=== PATIENT | female | born 1990 | race African-American/Black ===

== ENCOUNTER 2024-08-30 13:57 | Outpatient (CLI) | payer BC, SELFPAY ==
--- NOTE | ~2024-08-30 | US_ITS ---
Pelvic ultrasound. Clinical History: Abnormal uterine bleeding Technique: Realtime transabdominal and transvaginal scanning of the pelvis was performed. Color flow Doppler and Doppler spectral analysis were performed. Findings: The uterus is anteverted. The endometrial stripe has a thickness of approximately 8 mm. No focal mass is identified. The right ovary measures 5.3 x 4.8 x 6.0 cm. Right ovarian cyst measures 4.4 x 4.1 x 4.0 cm, with low -level internal echoes, most compatible with hemorrhagic cyst. The left ovary measures 3.1 x 2.4 x 3.0 cm. No significant left ovarian or adnexal mass is seen. Vascular flow present in the ovaries on Doppler spectral analysis. There is no evidence of free fluid in the cul de sac. Impression: 4.4 cm right ovarian cyst, likely hemorrhagic cyst. Reviewed, dictated and finalized at [facility]. Impression: 4.4 cm right ovarian cyst, likely hemorrhagic cyst.
== END 2024-08-30 13:58 | disposition home or self-care (01) ==
LOC: MICIMG 13:59
PROVIDERS: PCP Student in an Organized Health Care Education/Training Program; Visit Provider Student in an Organized Health Care Education/Training Program
DX: N83.201 Unspecified ovarian cyst, right side (principal); N93.9 Abnormal uterine and vaginal bleeding, unspecified; D25.9 Leiomyoma of uterus, unspecified
CPT/HCPCS: 76830; 76856

== ENCOUNTER 2025-05-02 07:57 | Outpatient (CLI) | payer BC, SELFPAY ==
--- OUTSIDE RECORDS SUMMARY | 2025-05-02 08:07 | XMS_ITS | Encounter Summary ---
Author Organization [facility] Address [address] [place] [address] Care Team Providers Care Health Coach Name Role Phone Sulema Lincoln APRN-FRANCHISE SALES MANAGER Unavailable [phone] Earnest Terrell MD Unavailable [phone] Rocio Colin APRN-FRANCHISE SALES MANAGER Primary Care Provider Reason for Visit * Reason Comments Refill Request Encounter Details Date Type Department Care Team (Late st Contact Info) Description 01/20/2024 Refill [facility] - Family Medicine [address] [place] [phone] Jennifer Gleason APRN-CNP RETIRED Refill Request Social History Tobacco Use Types Packs/Day Years Used Date Smoking Tobacco: Never Smokeless Tobacco: Never Alcohol Use Standard Drinks/Week Comments Not Currently 0 (1 standard drink = 0.6 oz pur e alcohol) occ AUDIT-C Answer Date Recorded Q1: How often do you have a drink containing alcohol? Never 11/17/2023 Q2: How many drinks containi ng alcohol do you have on a typical day when you are drinking? Patient does not drink Q3: How often do you have si x or more drinks on one occasion? Never 11/17/2023 PHQ-2 Answer Date Recorded Patient Health Questionnaire-2 Score 0 08/12/2023 Comments No Sex and Gender Information Value Date Recorded Sex Assigned at Not on file Legal Sex Female 6:24 PM CASTING INSPECTOR Gender Identity Not on file Sexual Orientation Not on file documented as of this encounter Functional Status * Is person deaf or have serious hearing difficulty? Answer Date of Assessment Author No 11/17/2023 9:52 AM Kelly Valadez RN * Is person blind or have serious difficulty seeing? Answer Date of Assessment Author No 11/17/2023 9:52 AM Kelly Valadez RN * Does person have serious difficulty walking/climbing stairs? Answer Date of Assessment Author No 11/17/2023 9:52 AM Kelly Valadez RN * Does person have difficulty dressing/bathing? Answer Date of Assessment Author No 11/17/2023 9:52 AM Kelly Valadez RN * Does person have difficulty doing errands alone? Answer Date of Assessment Author No 11/17/2023 9:52 AM Kelly Valadez RN documented as of this encounter Mental Status * Does person have difficulty concentrating/remembering/making decisions? Answer Entry Date Author No 11/17/2023 9:52 AM Kelly Valadez RN documented in this encounter Plan of Treatment Not on file documented as of this encounter Visit Diagnoses Not on filedocumented in this encounter Additional Health Concerns Infection Onset Date Last Indicated Resolved Time COVID-19 Under Investigation 07/21/2024 07/21/2024 07/22/2024 5:22 PM CASTING INSPECTOR Influenza A or B 07/21/2024 07/21/2024 07/28/2024 4:33 AM CASTING INSPECTOR documented as of this encounter Care Teams Health Coach Relationship Specialty Start Date End Date Rocio Colin APRN-CNP [address] [place] [phone] PCP - General Nurse Practitioner 05/06/21 Sulema Lincoln APRN-CNP Nurse Practitioner 07/30/20 Earnest Terrell MD [facility] [place] [phone] (Work) Rheumatology 05/05/21 documented as of this encounter
--- OUTSIDE RECORDS SUMMARY | 2025-05-02 08:07 | XMS_ITS | Encounter Summary ---
Author Organization [facility] Address [address] [place] [address] Care Team Providers Care Migratory Farm Hand Name Role Phone Sulema Lincoln APRN-OCCUPATIONAL THERAPY TEACHER Unavailable Earnest Terrell MD Unavailable [phone] Rocio Colin APRN-OCCUPATIONAL THERAPY TEACHER Primary Care Provider Encounter Details Date Type Department Care Team (Late st Contact Info) Description 04/12/2025 Results Follow-Up [facility] - Family Medicine [address] [place] [phone] Rocio Colin APRN-CNP [address] [place] [phone] Social History Tobacco Use Types Packs/Day Years [...] Date Recorded Patient Health Questionnaire-2 Score 0 02/07/2025 Comments No Sex and Gender Information Value Date Recorded Sex Assigned at Not on file Legal Sex Female 6:24 PM RADIO SPORTSCASTER Gender Identity Not on file Sexual Orientation [...] Diagnoses Not on filedocumented in this encounter Care Teams Migratory Farm Hand Relationship Specialty Start Date End Date Rocio Colin APRN-VICKY [address] [place] [phone] PCP - General Nurse Practitioner 05/06/21 Sulema Lincoln APRN-OCCUPATIONAL THERAPY TEACHER Nurse Practitioner 07/30/20 Earnest Terrell MD [address] [place] [phone] (Work) Rheumatology 05/05/21 documented as of this encounter
--- OUTSIDE RECORDS SUMMARY | 2025-05-02 08:07 | XMS_ITS | Clinical Summary ---
Author Organization [facility] Address [address] [place] [address] Phone Care Team Providers Care Manager Target Name Role Phone Sydnie Munoz Primary Care Provider [phone] Rudy Day MD Unavailable [phone] Allergies No known active allergies Medications omeprazole (PriLOSEC) 20 MG CAPSULE DELAYED RELEASE Take 1 Capsule by mouth. 02/18/2016 Active Cholecalciferol (VITAMIN D-3 PO) Take by mouth. Active Menaquinone-7 (VITAMIN K2 PO) Take by mouth. Active LOSARTAN POTASSIUM PO Take by mouth. Active Etonogestrel-Et hinyl Estradiol (NUVARING VA) by Vaginal route. Active Active Problems Problem Noted Date Diagnosed Date Iron deficiency anemia due to chronic blood loss 05/15/2019 Menorrhagia with regular cycle 05/15/2019 Family History Medical History Relation Name Comments Hypertension Father Kidney Disease Father Heart Attack Mother Hypertension Mother Thyroid Disease Mother Lupus Sister Rheumatoid Arthritis Sister Relation Name Status Comments Father Alive Mother Alive Sister Alive Social History Tobacco Use Types Packs/Day Years Used Date Smoking Tobacco: Never Passive Smoke Exposure: Never Smokeless Tobacco: Never Alcohol Use Standard Drinks/Week Comments Never 0 (1 standard drink = 0.6 oz pur e alcohol) AUDIT-C Answer Date Recorded Frequency of Alcohol Consumption Never 05/15/2019 Average Number of Drinks Not on file 019 Frequency of Binge Drinking Not on file 04/30 PHQ-2 Answer Date Recorded PHQ-2 Score 0 05/15/2019 Comments Unknown Sex and Gender Information Value Date Recorded Sex Assigned at Not on file Legal Sex Female 11:07 AM ABSTRACT CHECKER Gender Identity Not on file Sexual Orientation Not on file Last Filed Vital Signs Vital Sign Reading Time Taken Comments Blood Pressure 144/86 12/09/2023 3:20 PM CDT Pulse 81 12/09/2023 3:20 PM CDT Temperature 36.6 C (97.8 F) 12/09/2023 3:20 PM CDT Respiratory Rate - - Oxygen Saturation 98% 12/09/2023 3:20 PM CDT Inhaled Oxygen Concentration - - Weight 137 kg (302 lb) 12/09/2023 3:20 PM CDT Height 167.6 cm (5' 6) 12/09/2023 3:20 PM CDT Body Mass Index 48.74 12/09/2023 3:20 PM CDT Plan of Treatment Upcoming Encounters Date Type Department Care Team (Late st Contact Info) Description 05/14/2025 2:00 PM ABSTRACT CHECKER Office Visit [facility] [address], [address] [phone] Rudy Day MD [address] [phone] Health Maintenance Due Date Last Done Comments Varicella Immunization (1 of 2 - 13+ 2-dose series) 10/08/2004 Pap Smear 10/08/2012 Cervical Cancer Screening (CCS) 10/08/2021 HPV/Cotest 10/08/2021 Influenza Immunization (#1) 2025 SARS-COV-2 Immunization ( season) 2025 03/08/2021, 02/15/2021, 02/01/2021 Respiratory Syncytial Virus (RSV) Immunization (Adult) (1 - 1-dose 75+ series) 10/08/2066 Hepatitis B Immunization Completed 002, 03/18/2001, 02/15/2001 DTaP/Tdap/Td Immunization Discontinued 2005, 01/20/1996, 03/19/1993, Additional history exists TdaP Immunization Completed 11/24/2005 Human Papillomavirus (HPV) Immunization Completed 05/01/2009, 01/09/2009, 10/24/2008 Hepatitis C Virus (HCV) Screening Completed 08/12/2022 Meningococcal Immunization (ACWY) Aged Out No longer eligible based on patient's age to complete this topic Pneumococcal Immunization Combined Aged Out No longer eligible based on patient's age to complete this topic Rotavirus Immunization Aged Out No lo nger eligible based on patient's age to complete this topic Insurance [facility] Care Teams Manager Target Relationship Specialty Start Date End Date Sydnie Munoz PA [facility] [place] [phone] PCP - General Physician Drying Frame Operator 04/21/19 Rudy Day MD [facility] [place] [phone] Consulting Physician Oncology 04/21/19
--- OUTSIDE RECORDS SUMMARY | 2025-05-02 08:07 | XMS_ITS | Clinical Summary ---
Author Organization [facility] Address [address] [place] [address] Care Team Providers Care Nanny Babysitter Name Role Phone Sulema Lincoln APRN-LICENSED SOCIAL WORKER Unavailable [phone] Earnest Terrell MD Unavailable [phone] Rocio Colin APRN-LICENSED SOCIAL WORKER Primary Care Provider Source Comments [facility],non-owned Affiliates and Associated Physician Practices is amultiple site organization consisting of ambulatory clinics and hospital sitesin [place], [place], [place] and [place]. This disclosure is being madepursuant to the Care Everywhere program and may not contain all information available regarding this patient. Last updated 18.[facility] Allergies No known active allergies Medications * Be aware that medications may not be up to date on this document. Alwaysverify current medications with the patient. multivitamin daily tabletIndication s:do not restart until drapery rod assembler visit Take 1 (one) tablet by mouth daily with food Reasons: do not restart until drapery rod assembler visit 1 Active Blood Pressure KIT Use 1 kit 2 times daily 1 kit 1 Active Iron-Vitamin C 65-125 MG TABS Take 1 Dose by mouth 2 times daily Active EluRyng 0.12-0.015 MG/24HR vaginal ring Insert 1 (one) device into the vagina every 30 days Remove ring after 3 weeks, followed by 1 week-rest, then insert new ring 1 device 12 3 Active Additional Information Patient not taking.Reported on 07/21/2024 triamterene-hydr oCHLOROthiazide (Dyazide) 37.5-25 MG capsule Take 1 (one) capsule by mouth once daily 30 capsule 4 Active Additional Information Patient not taking.Reported on 12/01/2023 omeprazole (PriLOSEC) 40 MG capsule Take 1 (one) capsule by mouth once daily as needed for Heartburn 30 capsule 2 4 Active vitamin D, ergocalciferol, (Drisdol) 1.25 MG (72097 UT) capsuleIndicatio ns:Vitamin D Deficiency Take 1 (one) capsule by mouth every 7 days Reasons: Vitamin D Deficiency 4 capsule 3 4 Active metFORMIN ER 24hr (Glucophage XR) 500 MG tablet Take 2 (two) tablets by mouth once daily 30 tablet 4 Active Additional Information Patient not taking.Reported on 02/11/2024 losartan (Cozaar) 50 MG tablet Take 1 (one) tablet by mouth once daily 4 Active cephalexin (Keflex) 500 MG capsuleIndicatio ns:Abscess of right groin Take 1 (one) capsule by mouth 3 times daily 30 capsule 4 Active Additional Information Patient not taking.Reported on 07/21/2024 methylPREDNISolo ne (Medrol Dosepak) 4 MG tabletIndication s:Acute midline low back pain without sciatica Take 1 (one) tablet by mouth as directed 21 tablet 4 Active Additional Information Patient not taking.Reported on 07/21/2024 cyclobenzaprine (Flexeril) 10 MG tabletIndication s:Acute midline low back pain without sciatica Take 1 (one) tablet by mouth at bedtime 30 tablet 4 Active Additional Information Patient not taking.Reported on 07/21/2024 docusate sodium (Colace) 100 MG capsuleIndicatio ns:Generalized abdominal pain,Constipatio n, unspecified constipation type Take 1 (one) capsule by mouth once daily as needed for Constipation 30 capsule 3 4 Active azithromycin (Zithromax) 250 MG tabletIndication s:Pharyngitis 500 mg PO on the first day; then, 250 mg PO daily for 4 days Reasons: Throat Infection 6 tablet 5 Active amoxicillin (Amoxil) 500 MG capsule Take 1 (one) capsule by mouth 3 times daily 30 capsule 5 Active chlorhexidine (Peridex) 0.12 % solution Swish and spit 15 mL 2 times daily 1893 mL 5 Active Active Problems Problem Noted Date Diagnosed Date Yeast infection 05/21/2022 Oral lesion 08/21/2021 Benign essential hypertension 08/21/2021 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 05/14/2021 Poor iron absorption 05/14/2021 Morbid obesity 11/04/2020 Diverticulitis of colon 04/15/2020 Acne vulgaris 06/08/2019 Family history of diabetes mellitus 06/08/2019 Low back pain 06/08/2019 Atypical chest pain 06/08/2019 Mastodynia 06/08/2019 Other malaise and fatigue 06/08/2019 Other specified hypoglycemia 06/08/2019 Reactive lymphadenopathy 06/08/2019 DENISE positive 06/05/2019 Iron deficiency anemia due to chronic blood loss 05/15/2019 Resolved Problems Problem Noted Date Diagnosed Date Resolved Date Dehydration 11/14/2020 11/28/2020 Acute pancreatitis 04/15/2020 Other abnormal glucose 06/08/201911/21 Other abnormal glucose 06/08/201911/21 Scanty or infrequent menstruation 06/08/2019 11/21/2020 Other abnormal glucose 06/05/201911/21 Menorrhagia with regular cycle 05/15/2019 11/21/2020 Preop examination 06/05/2019 Preop examination 11/21/2020 Encounters Date Type Department Care Team Description 04/17/2025 Orders Only [facility] Family Medicine [address] [place] [phone] Rocio Colin REHABILITATION NURSE-VICKY Elevated amylase 04/17/2025 Orders Only [facility] Family [address] [phone] Rocio Colin, REHABILITATION NURSE-VICKY Anemia, unspecified type 04/17/2025 Orders Only [facility] Family Medicine [address] [place] [phone] Cristi, Rocio E, REHABILITATION NURSE-LICENSED SOCIAL WORKER Elevated amylase 04/12/2025 Orders Only [address] [phone] Cristi, Rocio E, REHABILITATION NURSE-LICENSED SOCIAL WORKER Anemia, unspecified type ; Fatigue, unspecified type; Iron deficiency 04/12/2025 Results Follow-Up [address] [phone] Heather Coline Cindy, REHABILITATION NURSE-LICENSED SOCIAL WORKER 04/10/2025 11:01 AM SKIP PIT WORKER - 04/10/2025 11:59 PM SKIP PIT WORKER Hospital Encounter [address] [phone] Cristi Rocio E, REHABILITATION NURSE-LICENSED SOCIAL WORKER Discharge Disposition: Home or Self Care 04/10/2025 Travel 04/09/2025 1:15 PM SKIP PIT WORKER Video Visit [address] [phone] Cristi Rocio E, REHABILITATION NURSE-LICENSED SOCIAL WORKER Fatigue, unspecified type ; Abdominal pain, unspecified abdominal location; Morbid obesity (HCC) 02/07/2025 4:45 PM CDT Video Visit [address] [phone] Rip Colincie E, REHABILITATION NURSE-LICENSED SOCIAL WORKER Pain, dental from Last 3 Months Immunizations Immunization Administration Dates Next Due Peela primary monoval ent 12+ yr 0.3mL Purple cap 03/08/2021,02/01/2021 DTP 01/20/1996, 3,04/18/1992,1991,1991 HEP B VACCINE, PED/ADOL 08/12/2001,03/18/2001, HIB VACCINE 03/19/1993, 2,02/14/1992,1991 Human Papilloma Virus Juan Alberto valent Vaccine 05/01/2009,01/09/2009,10/24/2008 MMR 01/20/1996,03/19/1993 POLIO OPV 01/20/1996, 3,02/14/1992,1991 Rho D Immune Globulin 06/13/2017 TDAP, HISTORIC VACCINE 11/24/2005 Family History Medical History Relation Name Comments Hypertension Father Hypertension Mother H/O Thyroid Disease Mother Cancer - Other Paternal Grandfather Diabetes - Type 2 Paternal Grandmother Lupus Sister Relation Name Status Comments Father Alive Maternal Grandfather Maternal Grandmother Alive Mother Alive Paternal Grandfather Paternal Grandmother Sister Alive Social History Tobacco Use Types Packs/Day Years Used Date Smoking Tobacco: Never Smokeless Tobacco: Never Tobacco Cessation:Counseling Given: Not Answered Alcohol Use Standard Drinks/Week Comments Not Currently [...] on file Legal Sex Female 6:24 PM SKIP PIT WORKER Gender Identity Not on file Sexual Orientation Not on file Last Filed Vital Signs Vital Sign Reading Time Taken Comments Blood Pressure 120/80 02/11/2024 2:48 PM CDT Pulse 105 07/21/2024 5:23 PM SKIP PIT WORKER Temperature 38.1 C (100.5 F) 07/21/2024 5:23 PM SKIP PIT WORKER Respiratory Rate 20 12/01/2023 2:00 PM CDT Oxygen Saturation 99% 07/21/2024 5:23 PM SKIP PIT WORKER Inhaled Oxygen Concentration 21% 11/04/2020 8 :20 PM CDT Weight 141.5 kg (312 lb) 07/21/2024 5:23 PM SKIP PIT WORKER Height 158.8 cm (5' 2.5) 02/11/2024 2:48 PM CDT Body Mass Index 56.16 02/11/2024 2:48 PM CDT Plan of Treatment Health Maintenance Due Date Last Done Comments DTAP/TDAP/TD VACCINES (7 - Td or Tdap) 11/25/2015 11/24/2005, 01/20/1996, 03/19/1993, Additional history exists COVID-19 VACCINE ( season) 2025 03/08/2021, 02/01/2021 INFLUENZA VACCINE (#1) 2025 PAP with HPV 07/01/2026 07/01/2021 ZOSTER VACCINE (1 of 2) 10/08/2041 HIB VACCINE Completed 03/19/1993, 03/31, 02/14/1992, Additional history exists HEPATITIS B VACCINE Completed 08/12/2001, 03/18/2001, 02/15/2001 HPV VACCINE Completed 05/01/2009, 12/29, 10/24/2008 HEPATITIS C SCREENING Completed 08/12/2022, HIV SCREENING Completed 08/12/2022, 01/15/2021 DEPRESSION SCREENING Completed 07/21/2024, 07/22/2023, 06/18/2022, Additional history exists MENINGOCOCCAL (Group B) VACCINE SHARED DECISION-MAKING Aged Out No longer eligible based on patient's age to complete this topic MENINGOCOCCAL GROUPS A/C/Y/W VACCINE Aged Out No longer eligible based on patient's age to complete this topic PNEUMOCOCCAL VACCINE Aged Out No long er eligible based on patient's age to complete this topic Medical Devices Implanted Type Area [employer] Worker Device Identifier Shelf Expiration Date Model / Serial / Lot Seal Tisseel Prima 1 Prefil Frz 10ml - [id number] Implanted:Qty: 1 on 11/04/2020 by Ngoc Kaye MD at [facility] N/A: Abdomen [employer] 03/30/2022 [id number] / [id number] / [id number] Procedures Procedure Name Priority Date/Time Associated Diagnosis Comments CBC W AUTO DIFFERENTIAL Routine 04/10/2025 11:02 AM SKIP PIT WORKER Fatigue, unspecified type FERRITIN Routine 04/10/2025 11:02 AM SKIP PIT WORKER Fatigue, unspecified type VITAMIN B12 FOLATE PANEL Routine 04/10/2025 11:02 AM SKIP PIT WORKER Fatigue, unspecified type SOLUBLE TRANSFERRIN RECEPTOR Routine 04/10/2025 11:02 AM SKIP PIT WORKER Fatigue, unspecified type IRON + TRANSFERRIN PANEL Routine 04/10/2025 11:02 AM SKIP PIT WORKER Fatigue, unspecified type COMPREHENSIVE METABOLIC PANEL Routine 04/10/2025 11:02 AM SKIP PIT WORKER Fatigue, unspecified type T4 FREE Routine 04/10/2025 11:02 AM SKIP PIT WORKER Fatigue, unspecified type TSH Routine 04/10/2025 11:02 AM SKIP PIT WORKER Fatigue, unspecified type T3 FREE Routine 04/10/2025 11:02 AM SKIP PIT WORKER Fatigue, unspecified type VITAMIN B1 Routine 04/10/2025 11:02 AM SKIP PIT WORKER Fatigue, unspecified type VITAMIN B6 Routine 04/10/2025 11:02 AM SKIP PIT WORKER Fatigue, unspecified type VITAMIN D 25-HYDROXY Routine 04/10/2025 11:02 AM SKIP PIT WORKER Fatigue, unspecified type INSULIN LEVEL FASTING Routine 04/10/2025 11:02 AM SKIP PIT WORKER Fatigue, unspecified type AMYLASE BLOOD Routine 04/10/2025 11:02 AM SKIP PIT WORKER Abdominal pain, unspecified abdominal location LIPASE BLOOD Routine 04/10/2025 11:02 AM SKIP PIT WORKER Abdominal pain, unspecified abdominal location HEPATITIS C ANTIBODY W RFLX PCR Routine 08/12/2022 9:28 AM CDT STD exposure HIV-1 HIV-2 ANTIBODY + HIV P24 AG PANEL Routine 08/12/2022 9:28 AM CDT STD exposure PAP IG LB+CT+NG+HPV APTIMA RFLX 16,18/45 Routine 07/01/2021 9:00 AM SKIP PIT WORKER Well woman exam with routine gynecological exam Encounter for surveillance of vaginal ring hormonal contraceptive device from Last 3 Months or Most Recently Relevant to Health Maintenance Results * INSULIN LEVEL FASTING (04/10/2025 11:02 AM SKIP PIT WORKER) Insulin Fasting 17 3 - 25 uIU/mL 04/12/2025 9:19 AM [facility] ([facility]) Comment: INTERPRETIVE INFORMATION: Insulin, Fasting This test reacts on a nearly equimolar basis with the analogs insulin aspart, insulin glargine, and insulin lispro. Insulin detemir exhibits approximately 50 percent cross-reactivity. Test reactivity with insulin glulisine is negligible (less than 3 percent). To convert to pmol/L, multiply uIU/mL by 6.0. Performed By: [facility] [address] [place] [address] Theatrical Trouper: Jalen Laws MD, PhD CLIA Number: [id number] Blood BLOOD SPECIMEN / Unknown Venipuncture / Unknown 04/10/2025 11:02 AM SKIP PIT WORKER 04/10/2025 11:02 AM [facility] Rocio Colin REHABILITATION NURSE-LICENSED SOCIAL WORKER LAB - CHEMISTRY ORDERAB LES Final Result [facility] ([facility]) [address] [place] [address] * VITAMIN B1 (04/10/2025 11:02 AM [facility]) Pathologist [facility] Vitamin B1 Whole Blood 72 70 - 180 nmol/L 04/13/2025 1:20 AM [facility] ([facility]) Comment: INTERPRETIVE INFORMATION: Vitamin B1, Whole Blood This assay measures the concentration of thiamine diphosphate (TDP), the primary active form of vitamin B1. Approximately 90 percent of vitamin B1 present in whole blood is TDP. Thiamine and thiamine monophosphate, which comprise the remaining 10 percent, are not measured. This test was developed and its performance characteristics determined by [facility]. It has not been cleared or approved by the [place] Food and Drug Administration. This test was performed in a CLIA certified laboratory and is intended for clinical purposes. Performed By: [facility] [address] [place] [address] Theatrical Trouper: Jalen Laws MD, PhD CLIA Number: [id number] Blood BLOOD SPECIMEN / Unknown Venipuncture / Unknown 04/10/2025 11:02 AM SKIP PIT WORKER 04/10/2025 11:02 AM SKIP PIT WORKER Rocio E Foster REHABILITATION NURSE-LICENSED SOCIAL WORKER LAB - CHEMISTRY ORDERAB LES Final Result Performing Organization Address [facility]/ZIP Co de Phone Number [employer] [facility]) [address] [place] [address] * (ABNORMAL) VITAMIN B6 (04/10/2025 11:02 AM SKIP PIT WORKER) Vitamin B6 8.1(L) 20.0 - 125.0 nmol/L 04/17/2025 1:28 AM SKIP PIT WORKER [employer] ([facility]) Comment: INTERPRETIVE INFORMATION: Vitamin B6 (Pyridoxal 5-Phosphate) Pyridoxal 5'-phosphate measured in a specimen collected following an 8-hour or overnight fast accurately indicates vitamin B6 nutritional status. Non-fasting specimen concentration reflects recent vitamin intake. This test was developed and its performance characteristics determined by [facility] [employer]. It has not been cleared or approved by the [place] Food and Drug Administration. This test was performed in a CLIA certified laboratory and is intended for clinical purposes. Performed By: [facility] [address] [place] [address] Theatrical Trouper: Jalen Laws MD, PhD CLIA Number: [id number] Blood BLOOD SPECIMEN / Unknown Venipuncture / Unknown 04/10/2025 11:02 AM SKIP PIT WORKER 04/10/2025 11:02 AM SKIP PIT WORKER Rociocindy Colin REHABILITATION NURSE-LICENSED SOCIAL WORKER LAB - CHEMISTRY ORDERAB LES Final Result Performing Organization Address [facility] Co de Phone Number [email or web address] [facility]) [address] [place] [address] * T3 FREE (04/10/2025 11:02 AM SKIP PIT WORKER) T3 Free 2.6 2.5 - 4.3 pg/mL 04/12/2025 12:07 PM SKIP PIT WORKER [email or web address] ([facility]) Comment: REFERENCE INTERVAL: Triiodothyronine, Free (Free T3) Access complete set of age- and/or gender-specific reference intervals for this test in the [facility] Laboratory Test Directory ([employer]). Performed By: [email or web address] [address] [place] [address] Theatrical Trouper: Jalen Laws MD, PhD CLIA Number: [id number] Blood BLOOD SPECIMEN / Unknown Venipuncture / Unknown 04/10/2025 11:02 AM SKIP PIT WORKER 04/10/2025 11:02 AM SKIP PIT WORKER Rocio Colin [facility] - CHEMISTRY ORDERAB LES Final Result Performing Organization Address [facility]/ZIP Co de Phone Number [facility] [employer] ([facility]) [address] [place] [id number] * (ABNORMAL) VITAMIN D 25-HYDROXY (PERFORMED IN HOUSE) (04/10/2025 11:02 AM SKIP PIT WORKER) [facility] Vitamin D, 25 Hydroxy 24.9(L) 30 - 80 ng/mL 04/10/2025 1:50 PM SKIP PIT WORKER [facility] Blood BLOOD SPECIMEN / Unknown Venipuncture / Unknown 04/10/2025 11:02 AM SKIP PIT WORKER 04/10/2025 11:02 AM SKIP PIT WORKER Narrative [facility] - 04/10/2025 1:50 PM SKIP PIT WORKER Reference Values: The recommendation for 25-Hydroxy Vitamin D clinical decision points are as follows: Deficient < 20.0 ng/mL Insufficient 20.0-29.9 ng/mL Sufficient 30.0-100.0 ng/mL Potential Toxicity >100 ng/mL Reference: The Endocrine Society Clinical Practice Guidelines. 2011 If the 25-Hydroxy Vitamin D results are inconsistent with clinical evidence, it is recommended that follow-up testing using a method such as LC-MS/MS be performed to confirm the result. Rocio Colin REHABILITATION NURSE-LICENSED SOCIAL WORKER LAB - CHEMISTRY ORDERAB LES Final Result Performing Organization Address City/[facility]/ZIP Co de Phone Number [facility] [address] [place] [address] * (ABNORMAL) SOLUBLE TRANSFERRIN RECEPTOR (04/10/2025 11:02 AM SKIP PIT WORKER) Pathologist [facility] Soluble Transferrin Receptor 3.78(H) 0.90 - 2.01 mg/L 04/12/2025 12:04 AM SKIP PIT WORKER [employer] ([facility]) Comment: INTERPRETIVE INFORMATION: Soluble Transferrin Receptor The Ken Griselda Access sTfR immunoassay is intended as an aid in the diagnosis of iron deficiency anemia, especially in patients with chronic disease. In adult patients with anemia, an sTfR result greater than or equal to 1.55 mg/L is 86 percent sensitive and 49 percent specific for the presence of iron deficiency anemia, alone or in combination with anemia of chronic disease. The sTfR assay is not intended to be used in isolation; results should be interpreted in conjunction with the patient's clinical presentation and other diagnostic tests, such as other indicators of iron status (refer to table below). Tests for Iron Anemia of Combined Iron Changes Def. Chronic Def. and anemia Analyte in: Anemia Disease of Chronic Dz ------- -------- ------ --------- Ferritin Iron Stores Low High Normal or High TIBC Iron Status High Low Normal or High Serum Fe Iron Status Low Low Low sTfR Iron Status High Normal High Performed By: [facility] [employer] [address] [place] [address] Theatrical Trouper: Jalen Laws MD, PhD CLIA Number: [id number] Blood BLOOD SPECIMEN / Unknown Venipuncture / Unknown 04/10/2025 11:02 AM SKIP PIT WORKER 04/10/2025 11:02 AM SKIP PIT WORKER Rocio Colin REHABILITATION NURSE-LICENSED SOCIAL WORKER LAB - CHEMISTRY ORDERAB LES Final Result [email or web address] ([facility]) [address] [place] [address] * (ABNORMAL) CBC WITH DIFFERENTIAL (04/10/2025 11:02 AM SKIP PIT WORKER) [facility] WBC 5.1 4.0 - 10.7 x10E9/L 04/10/2025 12:36 PM SKIP PIT WORKER [facility] RBC Count 3.80(L) 3.90 - 5.20 x10E12/L 04/10/2025 12:36 PM [facility] Hemoglobin 7.6(L) 11.9 - 15.8 g/dL 04/10/2025 12:36 PM [facility] Hematocrit 27.3(L) 34.8 - 46.1 % 04/10/2025 12:36 PM [facility] MCV 71.8(L) 80.0 - 98.0 fL 04/10/2025 12:36 PM [facility] MCH 20.0(L) 26.7 - 33.6 pg 04/10/2025 12:36 PM [facility] MCHC 27.8(L) 31.7 - 36.3 g/dL 04/10/2025 12:36 PM [facility] RDW-CV 17.4(H) 11.3 - 14.8 % 04/10/2025 12:36 PM [facility] Platelet Count 448(H) 150 - 420 x10E9/L 04/10/2025 12:36 PM [facility] MPV 10.8 7.8 - 11.4 fL 04/10/2025 12:36 PM [facility] Neutrophil % 63.2 41.0 - 74.0 % 04/10/2025 12:36 PM [facility] Lymphocyte % 27.2 17.0 - 47.0 % 04/10/2025 12:36 PM [facility] Monocyte % 7.6 3.0 - 11.0 % 04/10/2025 12:36 PM [facility] Eosinophil % 1.6 0.0 - 7.0 % 04/10/2025 12:36 PM [facility] Basophil % 0.2 0.0 - 1.6 % 04/10/2025 12:36 PM [facility] Immature Granulocytes % 0.2 0.0 - 1.0 % 04/10/2025 12:36 PM [facility] Neutrophil Absolute 3.25 1.60 - 7.50 x10E9/L 04/10/2025 12:36 PM [facility] Lymphocyte Absolute 1.40 1.00 - 4.40 x10E9/L 04/10/2025 12:36 PM [facility] Monocyte Absolute 0.39 0.15 - 1.00 x10E9/L 04/10/2025 12:36 PM [facility] Eosinophil Absolute 0.08 0.00 - 0.60 x10E9/L 04/10/2025 12:36 PM [facility] Basophil Absolute 0.01 0.00 - 0.13 x10E9/L 04/10/2025 12:36 PM [facility] Blood BLOOD SPECIMEN / Unknown Venipuncture / Unknown 04/10/2025 11:02 AM SKIP PIT WORKER 04/10/2025 11:02 AM [facility] us Rocio Colin REHABILITATION NURSE-LICENSED SOCIAL WORKER LAB - HEMATOLOGY ORDERA BLES Final Result [facility] [address] * (ABNORMAL) COMPREHENSIVE METABOLIC PANEL (04/10/2025 11:02 AM [facility]) [facility] Glucose 90 70 - 125 mg/dL 04/10/2025 1:16 PM [facility] Sodium 140 136 - 145 mmol/L 04/10/2025 1:16 PM [facility] Potassium 3.8 3.4 - 5.1 mmol/L 04/10/2025 1:16 PM [facility] Chloride 109(H) 98 - 107 mmol/L 04/10/2025 1:16 PM [facility] CO2 25 22 - 29 mmol/L 04/10/2025 1:16 PM [facility] Calcium 8.95 8.4 - 10.2 mg/dL 04/10/2025 1:16 PM [facility] Anion Gap 6 6 - 16 mmol/L 04/10/2025 1:16 PM [facility] BUN 6.2(L) 9.8 - 20.1 mg/dL 04/10/2025 1:16 PM [facility] Creatinine 0.72 0.57 - 1.11 mg/dL 04/10/2025 1:16 PM [facility] Alkaline Phosphatase 77 40 - 150 U/L 04/10/2025 1:16 PM [facility] ALT 7 7 - 30 U/L 04/10/2025 1:16 PM [facility] AST 18 5 - 34 U/L 04/10/2025 1:16 PM [facility] Protein Total 7.2 6.4 - 8.3 gm/dL 04/10/2025 1:16 PM [facility] Albumin 3.5 3.1 - 4.5 gm/dL 04/10/2025 1:16 PM [facility] Globulin Total 3.7 2.6 - 4.0 gm/dL 04/10/2025 1:16 PM [facility] Albumin/Globulin Ratio 0.9 0.9 - 1.6 04/10/2025 1:16 PM [facility] Bilirubin Total 0.3 0.2 - 1.2 mg/dL 04/10/2025 1:16 PM [facility] eGFR >90 >90 mL/min/1.7 3m2 04/10/2025 1:16 PM [facility] Comment:Estimated Glomerular Filtration Rate (eGFR) calculated using the CKD-EPI Creatinine Equation (2020), per the National Kidney Foundation and [place] [employer] recommendations. Blood BLOOD SPECIMEN / Unknown Venipuncture / Unknown 04/10/2025 11:02 AM SKIP PIT WORKER 04/10/2025 11:02 AM SKIP PIT WORKER Rocio E Cristi REHABILITATION NURSE-LICENSED SOCIAL WORKER LAB - CHEMISTRY ORDERAB LES Final Result Performing Organization Address City/[facility] Co de Phone Number [facility] [address] [place] [address] * LIPASE BLOOD (04/10/2025 11:02 AM SKIP PIT WORKER) Pathologist [facility] Lipase 8 8 - 78 U/L 04/10/2025 1:16 PM [facility] Blood BLOOD SPECIMEN / Unknown Venipuncture / Unknown 04/10/2025 11:02 AM SKIP PIT WORKER 04/10/2025 11:02 AM SKIP PIT WORKER Rocio E Cristi REHABILITATION NURSE-LICENSED SOCIAL WORKER LAB - CHEMISTRY ORDERAB LES Final Result Performing Organization Address City/[facility] Co de Phone Number [facility] [address] [place] [address] * VITAMIN B12 FOLATE PANEL (04/10/2025 11:02 AM SKIP PIT WORKER) Vitamin B12 377 213 - 816 pg/mL 04/10/2025 1:23 PM [facility] Folate 9.6 7.0 - 31.4 ng/mL 04/10/2025 1:23 PM SKIP PIT WORKER [facility] Blood BLOOD SPECIMEN / Unknown Venipuncture / Unknown 04/10/2025 11:02 AM SKIP PIT WORKER 04/10/2025 11:02 AM SKIP PIT WORKER us Rocio E Foster REHABILITATION NURSE-LICENSED SOCIAL WORKER LAB - CHEMISTRY ORDERAB LES Final Result Performing Organization Address City/[facility]/ZIP Co de Phone Number [facility] [address] [place] [address] * (ABNORMAL) AMYLASE BLOOD (04/10/2025 11:02 AM SKIP PIT WORKER) Amylase 172(H) 25 - 125 U/L 04/10/2025 1:16 PM SKIP PIT WORKER [facility] Blood BLOOD SPECIMEN / Unknown Venipuncture / Unknown 04/10/2025 11:02 AM SKIP PIT WORKER 04/10/2025 11:02 AM SKIP PIT WORKER us Rocio E Foster REHABILITATION NURSE-LICENSED SOCIAL WORKER LAB - CHEMISTRY ORDERAB LES Final Result Performing Organization Address [facility] Co de Phone Number [facility] [address] [place] [address] * TSH (04/10/2025 11:02 AM SKIP PIT WORKER) TSH 1.2682 0.35 - 4.94 uIU/mL 04/10/2025 1:22 PM SKIP PIT WORKER [facility] Blood BLOOD SPECIMEN / Unknown Venipuncture / Unknown 04/10/2025 11:02 AM SKIP PIT WORKER 04/10/2025 11:02 AM SKIP PIT WORKER us Rocio E Foster REHABILITATION NURSE-LICENSED SOCIAL WORKER LAB - CHEMISTRY ORDERAB LES Final Result Performing Organization Address City/[facility] Co de Phone Number [facility] [address] [place] [address] * T4 FREE (04/10/2025 11:02 AM SKIP PIT WORKER) T4 Free 0.78 0.70 - 1.48 ng/dL 04/10/2025 1:50 PM SKIP PIT WORKER [facility] Blood BLOOD SPECIMEN / Unknown Venipuncture / Unknown 04/10/2025 11:02 AM SKIP PIT WORKER 04/10/2025 11:02 AM SKIP PIT WORKER us Rocio E Foster REHABILITATION NURSE-LICENSED SOCIAL WORKER LAB - CHEMISTRY ORDERAB LES Final Result Performing Organization Address [facility] Co de Phone Number [facility] [address] [place] [address] * (ABNORMAL) IRON + TRANSFERRIN PANEL (04/10/2025 11:02 AM SKIP PIT WORKER) Iron 20(L) 50 - 170 ug/dL 04/10/2025 1:16 PM SKIP PIT WORKER [facility] Transferrin 280 180 - 382 mg/dL 04/10/2025 1:16 PM SKIP PIT WORKER [facility] TIBC Calculated 350 261 - 497 ug/dL 04/10/2025 1:16 PM SKIP PIT WORKER [facility] Iron Saturation % 6(L) 11 - 45 % 04/10/2025 1:16 PM SKIP PIT WORKER [facility] Blood BLOOD SPECIMEN / Unknown Venipuncture / Unknown 04/10/2025 11:02 AM SKIP PIT WORKER 04/10/2025 11:02 AM SKIP PIT WORKER us Rociocindy Colin APRN-LICENSED SOCIAL WORKER LAB - CHEMISTRY ORDERAB LES Final Result Performing Organization Address [facility] Co de Phone Number [facility] [address] [place] [address] * FERRITIN (04/10/2025 11:02 AM SKIP PIT WORKER) Ferritin 10 5 - 204 ng/mL 04/10/2025 1:50 PM SKIP PIT WORKER [facility] Blood BLOOD SPECIMEN / Unknown Venipuncture / Unknown 04/10/2025 11:02 AM SKIP PIT WORKER 04/10/2025 11:02 AM SKIP PIT WORKER us Rocio E Foster REHABILITATION NURSE-LICENSED SOCIAL WORKER LAB - CHEMISTRY ORDERAB LES Final Result Performing Organization Address [facility] Co de Phone Number [facility] [address] [place] [address] * HEPATITIS C ANTIBODY W RFLX PCR (08/12/2022 9:28 AM CDT) Hepatitis C Antibody Non Reactive Non Reactive [facility] INSURANCE BILL Blood BLOOD SPECIMEN / Unknown 08/12/2022 9:28 AM CDT 08/12/2022 Narrative Resulting Agency Comment [facility]: [facility] [address] [facility] [phone] VideostripN-LICENSED SOCIAL WORKER LAB - CHEMISTRY ORDERABLES F inal Result Performing Organization Address [facility] Co de Phone Number [facility] INSURANCE BILL [address] [place] [address] * HIV-1 HIV-2 ANTIBODY + HIV P24 AG PANEL (08/12/2022 9:28 AM CDT) Pathologist [facility] HIV Screen 4th Generation w Reflex Non Reactive Non Reactive [facility] INSURANCE BILL Comment: HIV Negative HIV-1/HIV-2 antibodies and HIV-1 p24 antigen were NOT detected. There is no laboratory evidence of HIV infection. Blood BLOOD SPECIMEN / Unknown 08/12/2022 9:28 AM CDT 08/12/2022 Narrative Resulting Agency Comment [facility]: [facility] [address] [facility] [phone] [employer] LAB - CHEMISTRY ORDERABLES F inal Result Performing Organization Address [facility] de Phone Number [facility] INSURANCE BILL [address] [place] [address] * PAP IG LB+CT+NG+HPV APTIMA RFLX [birth year] (07/01/2021 9:00 AM SKIP PIT WORKER) Diagnosis [facility] ACCOUNT BILL Comment:NEGATIVE FOR INTRAEP ITHELIAL LESION OR MALIGNANCY. Specimen Adequacy [facility] ACCOUNT BILL Comment:Satisfactory for angelina luation. No endocervical component is identified. Clinician Provided ICD10 [facility] ACCOUNT BILL Comment: Z01.419 Z30.44 Performed by [facility] ACCOUNT BILL Comment:Chiquis mackenzie, Screen Stretcher (ASCP) Comment . [facility] ACCOUNT BILL Note [facility] ACCOUNT BILL Comment: The Pap smear is a screening test designed to aid in the detection of premalignant and malignant conditions of the uterine cervix. It is not a diagnostic procedure and should not be used as the sole means of detecting cervical cancer. Both false-positive and false-negative reports do occur. . IGLBP CPT Code Automation [facility] ACCOUNT BILL Comment: This liquid based ThinPrep(R) pap test was screened with the use of an image guided system. Human papillomavirus Aptima Negative Negative [facility] ACCOUNT BILL Comment: This nucleic acid amplification test detects fourteen high-risk HPV types (16,18,31,33,35,39,45,51,52,56,58,59,66,68) without differentiation. Chlamydia trachomatis AMANDA Negative Negative [facility] ACCOUNT BILL GC DNA Probe Negative Negative [facility] ACCOUNT BILL PART OF UTERINE CERVIX / Unknown 07/01/2021 9:00 AM SKIP PIT WORKER 07/08/2021 Narrative [facility] ACCOUNT BILL - 07/09/2021 11:06 PM SKIP PIT WORKER Source.............Cervix LMP / Prev Treat...IFY=[id number];None No. of containers..01 ThinPrep Vial Resulting Agency Comment Lab Testing performed at: Lab[address] [phone] Jennifer Gleason APRN-LICENSED SOCIAL WORKER LAB - PATHOLOGY/CYTOLOGY ORD ERABLES Final Result [facility] ACCOUNT BILL [address] [place] [address] from Last 3 Months or Most Recently Relevant to Health Maintenance [place] [place] [address] [facility] * Guarantor: E-SCREEN,SOIL Account Type Relation to Patient Date of Phone Billing Address Company Employer [employer] [address] [place] [address] * Guarantor: E-SCREEN,SOIL Account Type Relation to Patient Date of Phone Billing Address Company Employer [employer] [address] Advance Directives * Full Code (Latest Code Status on File) Date Activated Date Inactivated Comments 11/04/2020 10:47 AM 11/06/2020 4:38 PM * Full Code Date Activated Date Inactivated Comments 04/16/2020 4:14 AM 04/16/2020 7:36 PM Care Teams Nanny Babysitter Relationship Specialty Start Date End Date Foster, Rocio E, REHABILITATION NURSE-LICENSED SOCIAL WORKER [address] [place] [address] PCP - General Nurse Practitioner 05/06/21 Sulema Lincoln, REHABILITATION NURSE-LICENSED SOCIAL WORKER Nurse Practitioner 07/30/20 Earnest Terrell MD [address] [place] [address] [phone] (Work) Rheumatology 05/05/21
[2025-05-02 09:17] LABS: Thyroid Stimulating Hormone 1.860 uIU/mL (0.465-4.680)
[2025-05-03 07:09] LABS: FSH 6.7 mIU/mL (.); LH 9.4 mIU/mL (.)
[2025-05-06 00:06] LABS: Estradiol, Sensitive 35.7 pg/mL (.)
== END 2025-05-02 07:58 | disposition home or self-care (01) ==
LOC: ANHLAB 08:02
PROVIDERS: PCP Student in an Organized Health Care Education/Training Program; Visit Provider Student in an Organized Health Care Education/Training Program
DX: N91.2 Amenorrhea, unspecified (principal)
CPT/HCPCS: 36415; 82533; 82670; 83001; 83002; 84144; 84443